=== PATIENT | female | born 1970 | race Caucasian/White ===

== ENCOUNTER 2016-11-12 11:07 | Emergency (ER) | payer OTHER ==
[~2016-11-12 11:07] MED LIST: AMOXICILLIN PO; BENZONATATE PO; CIPROFLOXACIN2.5 ML OP; DECONGESTANT NA15 ML NS; FLEXERIL10 MG PO; IBUPROFEN600 MG PO; KLONOPIN PO; LEVAQUIN750 M1 PO; LORTAB 5/500 TA1 TA1 PO; LORTAB 7.5-5001 TAB PO; LOTRISONE CREAM45 GM TOP; NAPROSYN500 MG PO; NAPROXEN375 MG PO; NO MEDICATIONS; NORCO 10/325 TA1 TAB PO; PREDNISONE PO; ROBAXIN PO; ROBITUSSIN-DM120 ML PO; RONDEC-DM ORAL30 ML PO; SUDAFED PO; TRAMADOL HCL50 M1 PO; VISTARIL PO; WELLBUTRIN PO; ZITHROMAX PO; ZOFRAN ODT4 MG/UDTAB PO; ZYRTEC10 M2 PO; [UNRECOGNIZED DRUG - OTHER]
== END 2016-11-12 11:32 | disposition home or self-care (01) ==
LOC: SED 11:07
DX: L03.116 Cellulitis of left lower limb (principal); F17.200 Nicotine dependence, unspecified, uncomplicated; Z90.710 Acquired absence of both cervix and uterus
CPT/HCPCS: 99281